=== PATIENT | female | born 1965 | race Two or more races ===

== ENCOUNTER 2017-03-29 08:01 | Day surgery (SDC) | payer OTHER ==
[2017-03-22 10:46] VITALS: BMI 33.9
[2017-03-29] MEDS ORDERED: PROPOFOL 20 ML ONE ×2 (08:07)
[2017-03-29 09:44] VITALS: TEMP 97.6
[2017-03-29 10:05] VITALS: BP 124/71; PULSE 81
--- NOTE | 2017-03-30 15:50 | PATH ---
Surgical Pathology Report Patient Name: RIAZ DOAN [facility]. Rec. #: [id number] /Age/Gender: 1965 (Age: 52) / F Account: [id number] Location: [facility] [place]-ENDOSCOPY Taken: 03/29/2017 Received: 03/29/2017 Reported: 03/30/2017 Physicians: Gabriel Willis M.D. Specimen(s) Received A: BX DUODENUM B: BX ANTRUM Clinical History Anemia Rule out H. Pylori, rule out celiac, external hemorrhoids, gastritis Final Diagnosis A. DUODENUM, BIOPSY: DUODENAL MUCOSA WITH NO PATHOLOGIC FINDINGS. Note: Features suggestive of celiac disease are not identified in this biopsy. B. ANTRUM, BIOPSY: SEVERE CHRONIC ACTIVE GASTRITIS. IMMUNOSTAIN SHOWS NUMEROUS H.PYLORI ORGANISMS. Electronically Signed Lori Trivedi M.D. Gross Description A. Received in formalin, labeled "duodenum" are 2 wallace, irregular portions of soft tissue measuring 0.4 and 0.5 cm. in greatest dimension. The specimens are submitted in toto in one cassette. B. Received in formalin, labeled "antrum" are 2 wallace, irregular portions of soft tissue measuring 0.3 and 0.5 cm. in greatest dimension. The specimens are submitted in toto in one cassette. 03/29/201703/29/2017
== END 2017-03-29 10:10 | disposition home or self-care (01) ==
LOC: FASU-ENDO 08:01
PROVIDERS: ATTEND Internal Medicine Gastroenterology
PROC: 0DB68ZX Excision of Stomach, Via Natural or Artificial Opening Endoscopic, Diagnostic (ICD-10-PCS; 2017-03-29)
PROC: 0DJD8ZZ Inspection of Lower Intestinal Tract, Via Natural or Artificial Opening Endoscopic (ICD-10-PCS; principal; 2017-03-29 09:03)
PROC: 0DB98ZX Excision of Duodenum, Via Natural or Artificial Opening Endoscopic, Diagnostic (ICD-10-PCS; 2017-03-29 09:03)
DX: D50.9 Iron deficiency anemia, unspecified (principal); K29.50 Unspecified chronic gastritis without bleeding
CPT/HCPCS: 84703; 88305-TC; 88342-TC

== ENCOUNTER 2023-11-19 10:32 | Day surgery (SDC) | payer OTHER ==
[2023-11-15 12:34] VITALS: BMI 35.2
[2023-11-19 12:47] VITALS: RESP 20; TEMP 97.5
[2023-11-19 13:01] VITALS: BP 110/62; PULSE 82
== END 2023-11-19 12:10 | disposition home or self-care (01) ==
LOC: FASU-ENDO 10:32
PROVIDERS: ATTEND Internal Medicine Gastroenterology
PROC: 0DJD8ZZ Inspection of Lower Intestinal Tract, Via Natural or Artificial Opening Endoscopic (ICD-10-PCS; principal; 2023-11-19 11:00)
DX: Z12.11 Encounter for screening for malignant neoplasm of colon (principal); Z83.719 Family history of colon polyps, unspecified

== ENCOUNTER → 2024-09-22 | Day surgery (SDC) | payer OTHER, BC ==
[2024-09-16 11:21] VITALS: BMI 34.3
[~2024-09-22] MED LIST: ACETAMINOPHEN INJECTION 100 ML ONE; BUPIVACAINE HCL/PF 0.5% (5MG/ML) 10 ML VIAL ONE; KETOROLAC TROMETHAMINE 30 MG/1 ML VIAL ONE; LACTATED RINGERS SOLUTION 1,000 ML IV SCH; LIDOCAINE HCL 1%, 10 MG/ML (20ML VIAL) ONE; MIDAZOLAM HCL 2 MG/2 ML SINGLE DOSE VIAL ONE; ONDANSETRON 4 MG/2 ML VIAL IVPUSH PRN; PROPOFOL 40 ML ONE; ceFAZolin SODIUM 1 GM VIAL ONE; oxyCODONE HCL 5 MG TABLET ONE; oxyCODONE HCL 5 MG TABLET PO PRN
[2024-09-22] MEDS: ceFAZolin SODIUM 1 GM VIAL IVPB ONE ×2 (10:44→10:45)
[2024-09-22] MEDS: LIDOCAINE HCL 1%, 10 MG/ML (20ML VIAL) INF ONE ×3 (10:50)
[2024-09-22] MEDS: BUPIVACAINE HCL/PF 0.5% (5 MG/ML) 30 ML VIAL IJ ONE ×4 (10:52)
[2024-09-22] MEDS: oxyCODONE HCL 5 MG TABLET PO PRN (13:12)
[2024-09-22 13:17] VITALS: RESP 18
[2024-09-22 14:32] VITALS: BP 122/72; PULSE 63; TEMP 97.8
== END | disposition home or self-care (01) ==
LOC: JASU-SURG 04:19
PROVIDERS: ATTEND Surgery
PROC: 0JB80ZZ Excision of Abdomen Subcutaneous Tissue and Fascia, Open Approach (ICD-10-PCS; principal; 2024-09-22 10:30)
DX: D17.5 Benign lipomatous neoplasm of intra-abdominal organs (principal)
CPT/HCPCS: 88304-TC; J0131

== ENCOUNTER 2024-10-05 14:38 | Emergency (ER) | payer OTHER, BC ==
[2024-10-05 14:56] VITALS: RESP 20; TEMP 97.8; BMI 35.2
[2024-10-05 16:12] LABS: BASO % 0.4 % (0-2.0); EOS % 1.9 % (0-4.5); HEMATOCRIT 42.6 % (32.4-45.2); HEMOGLOBIN 14.1 GM/dL (10.7-15.3); LYMPH % 16.8 % (8-40); MCH 29.9 pg (25.7-33.7); MCHC 33.1 g/dl (32.0-36.0); MEAN CELL VOLUME 90.3 fl (80-96); MEAN PLT VOLUME 6.9 fl (7.5-11.1); MONO % 7.9 % (3.8-10.2); PLATELET COUNT 369 10^3/uL (134-434); RBC 4.71 M/mm3 (3.60-5.2); RDW 14.3 % (11.6-15.6)
[2024-10-05 16:15] LABS: INR 1.03 (0.83-1.09); PROTHROMBIN TIME (PATIENT) 11.8 SEC (9.7-13.0)
[2024-10-05 16:18] LABS: ACTIVATED PTT 38.1 SECONDS (25.2-36.5)
[2024-10-05] MEDS: SODIUM CHLORIDE 0.9% 500 ML INFUS.BAG IV ONE (16:22)
[2024-10-05 16:32] LABS: POTASSIUM 4.2 mmol/L (3.5-5.1)
[2024-10-05 16:36] LABS: ALBUMIN 4.2 g/dl (3.4-5.0); CALCIUM 9.8 mg/dL (8.5-10.1)
[2024-10-05 16:39] LABS: CREATININE 0.9 mg/dL (0.55-1.3)
[2024-10-05 16:41] LABS: BILIRUBIN,TOTAL 0.5 mg/dL (0.2-1); TOT PROT 8.2 g/dl (6.4-8.2)
[2024-10-05 19:54] VITALS: BP 136/76; PULSE 74
== END 2024-10-05 20:58 | disposition home or self-care (01) ==
LOC: JER 14:38
DX: R06.02 Shortness of breath (principal); R00.2 Palpitations; R07.89 Other chest pain; R00.0 Tachycardia, unspecified
CPT/HCPCS: 36415; 71045-TC-FY; 71275-TC; 80053; 83880; 84484; 85025; 85610; 85730; 93005; 93010; 99285-25; Q9967